=== PATIENT | female | born 1945 | race Caucasian/White ===

== ENCOUNTER 2017-11-21 05:55 | Day surgery (SDC) | payer MEDICARE ==
[2017-11-19 11:06] LABS: BASOPHILS % (AUTO) 0.9 % (0.0-5.0); EOSINOPHILS % (AUTO) 0.8 % (0.0-8.0); HEMATOCRIT 41.4 % (36-48); LYMPHOCYTES % (AUTO) 29.5 % (21.0-51.0); MEAN CORPUSCULAR HEMOGLOBIN 31.3 pg (27.0-33.0); MEAN CORPUSCULAR HGB CONC 34.1 g/dL (32.0-36.0); MEAN CORPUSCULAR VOLUME 91.9 fL (79-99); MONOCYTES % (AUTO) 8.5 % (3.0-13.0); NEUTROPHILS % (AUTO) 60.3 % (40.0-77.0); PLATELET COUNT (AUTO) 230 K/uL (130-400); RED BLOOD CELL COUNT(AUTO) 4.51 MIL/uL (4.00-5.50); RED CELL DISTRIBUTION WIDTH 13.7 % (11.0-15.5); WHITE BLOOD COUNT (AUTO) 7.5 K/uL (4.8-10.8)
[2017-11-19 11:20] VITALS: BP 116/70
[2017-11-19 11:21] LABS: CREATININE 0.8 mg/dL (0.5-1.5); POTASSIUM 4.6 mmol/L (3.5-5.1)
[2017-11-19 11:24] LABS: INR 1.21 (0.85-1.15); PARTIAL THROMBOPLASTIN TIME 32.5 SEC (26.3-35.5); PROTHROMBIN TIME 12.7 SEC (9.6-11.6)
[2017-11-21] VITALS (10 sets, daily range): BP systolic 99–123; BP diastolic 33–63
[~2017-11-21] VITALS: Ht 172.7 cm; Wt 89.4 kg
[~2017-11-21 05:55] MED LIST: AMIO200T2 PO; ASPI-1181 PO; ATOR10 PO; INSLAN SQ; INSNOV SQ; KRIL1CAP12 PO; LOSA50TA37 PO; METO25TA6 PO; MULT-1258 PO; PROP10DR5 OU; RANO500T3 PO; RIVA20TA PO; TRAM100T34 PO
[2017-11-21] MEDS ORDERED: HEPARIN SODIUM 1000UNIT/ML 10ML VIAL ONE (07:35)
[2017-11-21] MEDS ORDERED: LIDOCAINE HCL 2% 20ML ONE (07:35)
[2017-11-21] MEDS ORDERED: MIDAZOLAM HCL 1 MG/ML 2ML VIAL ONE (07:52)
[2017-11-21] MEDS ORDERED: MEPERIDINE-PF 25 MG/ML SYG ONE (07:52)
[2017-11-21] MEDS ORDERED: GLUCAGON 1MG KIT 1 MG ML IM PRN (10:00)
[2017-11-21] MEDS ORDERED: DEXTROSE 50%-WATER 50 ML DISP.SYRIN IV PRN (10:00)
[2017-11-21] MEDS ORDERED: SODIUM CHLORIDE 0.9% 1000ML 1,000 ML IV ONE (10:46)
[2017-11-21] MEDS ORDERED: RIVAROXABAN 20 MG TABLET PO SCH (13:00)
== END 2017-11-21 13:45 | disposition home or self-care (01) ==
LOC: DAH 05:55
PROVIDERS: ATTEND Internal Medicine Cardiovascular Disease
DX: I48.4 Atypical atrial flutter (principal); I48.3 Typical atrial flutter; Z79.4 Long term (current) use of insulin; I11.0 Hypertensive heart disease with heart failure; I50.9 Heart failure, unspecified; E78.5 Hyperlipidemia, unspecified; Z79.899 Other long term (current) drug therapy; Z79.84 Long term (current) use of oral hypoglycemic drugs; I48.91 Unspecified atrial fibrillation; I25.10 Atherosclerotic heart disease of native coronary artery without angina pectoris; Z95.1 Presence of aortocoronary bypass graft; Z68.30 Body mass index [BMI] 30.0-30.9, adult
CPT/HCPCS: 36415; 80048; 82948 ×2; 85025; 85610; 85730; 93005; 93613; 93621; 93653; C1730; C1732; C1894 ×2; J1644; J2175; J2250; J3490; J7030; 99152; 99153

== ENCOUNTER → 2019-11-03 | Outpatient (CLI) | payer OTHER ==
[~2019-11-03] MED LIST changes: +ALBUTEROL SULFATE 0.083% 2.5 MG/3 ML INH IH ONE; -AMIO200T2 PO; -ASPI-1181 PO; -ATOR10 PO; +CLOP75TA14 PO; -INSLAN SQ; -INSNOV SQ; +ISOS30TA6 PO; -KRIL1CAP12 PO; -LOSA50TA37 PO; -METO25TA6 PO; +METO75TA PO; -RANO500T3 PO; +ROSU5TAB12 PO
== END | disposition home or self-care (01) ==
LOC: RESP 12:41
PROVIDERS: ATTEND Internal Medicine Cardiovascular Disease
DX: J44.9 Chronic obstructive pulmonary disease, unspecified (principal)
CPT/HCPCS: 94060; 94727; 94729

== ENCOUNTER → 2020-01-18 | Outpatient (CLI) | payer OTHER ==
[~2020-01-18] MED LIST changes: -ALBUTEROL SULFATE 0.083% 2.5 MG/3 ML INH IH ONE; +IOHEXOL-350 50ML VIAL IV ONE
== END | disposition home or self-care (01) ==
LOC: RAH 07:43
PROVIDERS: ATTEND Internal Medicine Cardiovascular Disease
DX: I65.21 Occlusion and stenosis of right carotid artery (principal); I70.0 Atherosclerosis of aorta; I25.10 Atherosclerotic heart disease of native coronary artery without angina pectoris; Z95.1 Presence of aortocoronary bypass graft
CPT/HCPCS: 70496; 70498; Q9967

== ENCOUNTER 2020-03-08 07:09 | Inpatient (IN) | payer OTHER ==
--- NOTE | 2020-03-07 16:58 | NUR ---
ASPIRIN INFORMED DIANDRA KRUGER OF PT NOT TAKING ASPIRIN. ORDERS RECEIVED TO HAVE PT TAKE 4 BABY ASPIRIN ON ARRIVAL OF PROCEDURE WITH A SMALL SIP OF WATER
[~2020-03-08] VITALS: Ht 170.2 cm; Wt 79.4 kg
[2020-03-08] VITALS (18 sets, daily range): BP systolic 87–159; BP diastolic 30–81
[2020-03-08] MEDS: ASPIRIN 81MG TAB.CHEW PO SCH ×3 (07:00→09:00)
[~2020-03-08 07:09] MED LIST changes: +FURO-151 PO; +HYDR-4153 PO; -IOHEXOL-350 50ML VIAL IV ONE; +IRON PO; -MULT-1258 PO; +POTA10CA44 PO; -PROP10DR5 OU; -RIVA20TA PO; -TRAM100T34 PO; +VITAMIN D PO; +ZINC50TA64 PO
[2020-03-08] MEDS ORDERED: SODIUM CHLORIDE 0.9% 1000ML 1,000 ML IV ONE (08:02)
[2020-03-08 08:14] LABS: BASOPHILS % (AUTO) 0.4 % (0.0-5.0); EOSINOPHILS % (AUTO) 1.5 % (0.0-8.0); HEMATOCRIT 35.3 % (36-48); LYMPHOCYTES % (AUTO) 34.8 % (21.0-51.0); MEAN CORPUSCULAR HEMOGLOBIN 27.6 pg (27.0-33.0); MEAN CORPUSCULAR HGB CONC 32.3 g/dL (32.0-36.0); MEAN CORPUSCULAR VOLUME 85.5 fL (79-99); MONOCYTES % (AUTO) 11.8 % (3.0-13.0); NEUTROPHILS % (AUTO) 51.3 % (40.0-77.0); PLATELET COUNT (AUTO) 160 K/uL (130-400); RED BLOOD CELL COUNT(AUTO) 4.13 MIL/uL (4.00-5.50); RED CELL DISTRIBUTION WIDTH 17.8 % (11.0-15.5); WHITE BLOOD COUNT (AUTO) 5.3 K/uL (4.8-10.8)
[2020-03-08] MEDS ORDERED: CEFAZOLIN SODIUM 1 GM VIAL ONE ×2 (08:21→09:41)
[2020-03-08 08:34] LABS: CREATININE 0.7 mg/dL (0.5-1.5); POTASSIUM 3.9 mmol/L (3.5-5.1)
[2020-03-08 08:42] LABS: INR 0.95 (0.85-1.15); PARTIAL THROMBOPLASTIN TIME 24.4 SEC (26.3-35.5); PROTHROMBIN TIME 10.3 SEC (9.6-11.6)
[2020-03-08 08:57] LABS: APPEARANCE,URINE Clear (CLEAR); BILIRUBIN,URINE Negative (NEGATIVE); COLOR,URINE Yellow (YELLOW); GLUCOSE, URINE (UA) 250 mg/dL (NEGATIVE); KETONES,URINE Negative (NEGATIVE); LEUKOCYTE ESTERASE ,URINE Negative (NEGATIVE); NITRATE,URINE Negative (NEGATIVE); OCCULT BLOOD,URINE Negative (NEGATIVE); PH,URINE 5.5 (5.0-8.0); PROTEIN,URINE Negative (NEGATIVE)
[2020-03-08 09:30] LABS: BACTERIA,URINE Rare /HPF (None Seen); RBC,URINE 0-1 /HPF (0-1); SQUAMOUS EPITHELIAL CELL,UR Rare /HPF (0-2); WBC,URINE 0-1 /HPF (0-1)
[2020-03-08] MEDS ORDERED: NOREPINEPHRINE BITARTRATE 1 MG/1 ML ML IV ONE (09:36)
[2020-03-08] MEDS ORDERED: LIDOCAINE PF 2% 5ML ABBOJECT ONE (09:36)
[2020-03-08] MEDS ORDERED: PROPOFOL 10 MG/ML 20ML VIAL IV ONE (09:37)
[2020-03-08] MEDS ORDERED: ONDANSETRON HCL 4 MG/2 ML VIAL ONE (09:37)
[2020-03-08] MEDS ORDERED: FENTANYL CITRATE PF 50 MCG/1 ML 2ML VIAL ONE (09:37)
[2020-03-08] MEDS ORDERED: ROCURONIUM 10MG/1ML SYR 10 MG/ML ML ONE (09:37)
[2020-03-08] MEDS ORDERED: ATROPINE SULFATE 0.1 MG/ML 10 ML SYG IVP ONE (09:40)
[2020-03-08] MEDS ORDERED: HEPARIN SODIUM 1000UNIT/ML 10ML VIAL ONE (09:41)
[2020-03-08] MEDS ORDERED: LIDOCAINE HCL 2% 20ML ONE (09:41)
[2020-03-08] MEDS ORDERED: SODIUM BICARB 50MEQ 50ML VIAL ONE (09:41)
[2020-03-08] MEDS ORDERED: NITROGLYCERIN 2 MG/VIAL VIAL IV ONE (09:41)
[2020-03-08] MEDS ORDERED: IODIXANOL 320 MG/ML 100 ML VIAL ONE (09:41)
[2020-03-08] MEDS: INSULIN HUMULIN R 100 UNIT/ML 3ML SQ SCH ×3 (11:30→20:58)
[2020-03-08] MEDS ORDERED: DEXTROSE 50%-WATER 50 ML DISP.SYRIN IV PRN ×2 (11:30→17:00)
[2020-03-08] MEDS ORDERED: PHARMACY COMMUNICATION MISC SCH (11:30)
[2020-03-08] MEDS ORDERED: NEOSTIGMINE 5MG/5ML SYR IV ONE (11:32)
[2020-03-08] MEDS ORDERED: GLYCOPYRROLATE 0.2 MG/ML 5 ML VIAL ONE (11:33)
[2020-03-08] MEDS ORDERED: NOREPINEPHRINE 4MG/NS 250ML 250 ML IV PRN (12:00)
[2020-03-08] MEDS ORDERED: NITROGLYCERIN 50 MG/D5% WATER 1 BOT IV PRN (12:00)
--- NOTE | 2020-03-08 12:00 | NUR ---
ASSUME CARE OF PATIENT FROM TRAVEL ACCOMMODATIONS RATER. PT IS AWAKE AND EXTUBATED. DROWSY. AIRWAY PATENT AND LEFT NECK INCISION HAS NO HEMATOMA
--- NOTE | 2020-03-08 13:04 | NUR ---
PT IS ALERT AND ORIENTED NOW. PT HAS CHRONIC LEFT FACIAL DROOP. HAND ASSISTANT COOK ARE EQUAL AND SPEECH IS CLEAR.
--- NOTE | 2020-03-08 13:30 | NUR ---
ABP 90/32- NIBP 95/38...LEVOPHED DRIP INITIATED AT 0.1MCG/KG/MIN
--- NOTE | 2020-03-08 13:40 | NUR ---
ABP 175/60.. LEVOPHED DRIP STOPPED.
[2020-03-08] MEDS: SODIUM CHLORIDE 0.9% 1000ML 1,000 ML IV SCH ×2 (13:44→19:58)
[2020-03-08] MEDS ORDERED: ACETAMINOPHEN-CODEINE 300/30MG TAB PO PRN ×2 (14:00)
--- NOTE | 2020-03-08 14:10 | NUR ---
COMMUNICATED WITH DR SULLIVAN VIA [facility]. I INFORMED THEM OF HTN WITH LEVOPHED . ORDERS GIVEN TO MONITOR PT AND KEEP BP 100-140
--- NOTE | 2020-03-08 14:35 | NUR ---
[facility]AY[facility] PLAN PATIENT DOWN FOR CAROTID. EUGENIE WILL CONTINUE TO FOLLOW. Addendum: 03/08/20 at 1436 by TOR TREVIZO RN CM Amended: Links added.
[2020-03-08] MEDS: ACETAMINOPHEN-CODEINE 300/30MG TAB PO PRN ×2 (14:59→20:55)
--- NOTE | 2020-03-08 16:42 | NUR ---
PT C/O NUMBNESS TO FINGERS RT HAND. BP LOW 90/30...I HAVE RESUMED LEVOPHED AT 0.01MCG/KG/MIN (3ML/HR) AMD WILL OBSERVE
[2020-03-08] MEDS ORDERED: POTASSIUM CHLORIDE 20MEQ/100ML 100 ML IV PRN (17:00)
[2020-03-08] MEDS ORDERED: POTASSIUM CHLORIDE 10% ELIXIR 20 MEQ/15 ML UDCUP PO PRN (17:00)
[2020-03-08] MEDS ORDERED: GLUCAGON 1MG KIT 1 MG ML IM PRN (17:00)
[2020-03-08] MEDS ORDERED: MAGNESIUM 2GM PREMIX 50ML 50 ML IV PRN (17:00)
[2020-03-08] MEDS ORDERED: POTASSIUM CHLORIDE 20 MEQ ERTAB PO PRN (17:00)
[2020-03-08] MEDS: CEFAZOLIN SODIUM 1 GM VIAL IVP SCH (17:52)
[2020-03-08] MEDS: METOPROLOL TARTRATE 50 MG TAB PO SCH (19:42)
[2020-03-08] MEDS ORDERED: INSULIN HUMULIN R 100 UNIT/ML 3ML SQ SCH (21:00)
[2020-03-08] MEDS ORDERED: HYDR-4453 PO (21:31)
[2020-03-09] VITALS (10 sets, daily range): BP systolic 95–143; BP diastolic 31–58
[2020-03-09] MEDS: CEFAZOLIN SODIUM 1 GM VIAL IVP SCH (01:03)
[2020-03-09] MEDS: HYDROCODONE/ACETAMINOPHEN 10/325 MG TAB PO PRN ×2 (01:20→08:17)
[2020-03-09] MEDS: SODIUM CHLORIDE 0.9% 1000ML 1,000 ML IV SCH (02:34)
[2020-03-09 04:41] LABS: HEMATOCRIT 31.5 % (36-48); MEAN CORPUSCULAR HEMOGLOBIN 27.8 pg (27.0-33.0); MEAN CORPUSCULAR HGB CONC 32.1 g/dL (32.0-36.0); MEAN CORPUSCULAR VOLUME 86.8 fL (79-99); RED BLOOD CELL COUNT(AUTO) 3.63 MIL/uL (4.00-5.50); RED CELL DISTRIBUTION WIDTH 17.9 % (11.0-15.5); WHITE BLOOD COUNT (AUTO) 6.5 K/uL (4.8-10.8)
[2020-03-09 05:30] LABS: CREATININE 0.5 mg/dL (0.5-1.5); POTASSIUM 3.9 mmol/L (3.5-5.1)
[2020-03-09] MEDS: INSULIN HUMULIN R 100 UNIT/ML 3ML SQ SCH (05:30)
[2020-03-09] MEDS: METOPROLOL TARTRATE 50 MG TAB PO SCH (07:56)
--- NOTE | 2020-03-09 07:57 | NUR ---
PT OOB IN CHAIR- DR SULLIVAN MADE ROUNDS- CLEARED PT FOR DISCHARGE AFTER IV FLUID BOLUS
[2020-03-09] MEDS ORDERED: FUROSEMIDE 40 MG TABLET PO SCH (09:00)
[2020-03-09] MEDS ORDERED: ISOSORBIDE MONO 30MG TAB SR PO SCH (09:00)
[2020-03-09] MEDS ORDERED: VIT D 2000 UNIT PO SCH (09:00)
[2020-03-09] MEDS ORDERED: ASPIRIN 81MG TAB.CHEW PO SCH (09:00)
[2020-03-09] MEDS ORDERED: POTASSIUM CHLORIDE 10 MEQ/TAB.SA PO SCH (09:00)
[2020-03-09] MEDS ORDERED: CLOPIDOGREL BISULFATE 75 MG TAB PO SCH (09:00)
[2020-03-09] MEDS ORDERED: ATORVASTATIN CALCIUM 10 MG TABLET PO SCH (09:00)
[2020-03-09] MEDS ORDERED: ZINC 50 MG PO SCH (09:00)
[2020-03-09] MEDS ORDERED: HYDRALAZINE HCL 25 MG TABLET PO SCH (09:00)
[2020-03-09] MEDS ORDERED: FERROUS SULFATE 325 MG TABLET.DR PO SCH (09:00)
--- NOTE | 2020-03-09 09:39 | NUR ---
PENDING ARRIVAL OF Rica [employer]ITH [employer] DEVELOPER TO SEE PT FOR DISCHARGE.. SHE WAS NOTIFIED. I HAVE REMOVED A-LINE LEFT BRACHIAL ARTERY. NO HEMATOMA (D-STAT UTILIZED) . IV LEFT FOREARM IV LEAKING AND IT WAS REMOVED INTACT. PT STABLE
--- NOTE | 2020-03-09 11:07 | NUR ---
PRINTED AND VERBAL DISCHARGE INSTRUCTIONS GIVEN . VERBALIZES UNDERSTANDING. ALL IV'S REMOVED INTACT. PENDING HER TO PICK HER UP
--- NOTE | 2020-03-09 11:30 | NUR ---
DISCHARGED- TO CAR VIA WHEELCHAIR
--- NOTE | 2020-03-09 16:53 | NUR ---
DC PLAN PATIENT DISCHARGED HOME ALREADY GONE NO NEEDS VERBALIZED BY NURSING STAFF. Addendum: 03/09/20 at 1656 by TOR TREVIZO RN CM Amended: Links added.
== END 2020-03-09 11:30 | disposition home or self-care (01) | DRG 36 ==
LOC: DAHIP 07:09 → EDSTATUS 09:30 → PAH.CVR 12:27
PROVIDERS: ADMIT Internal Medicine Critical Care Medicine; ATTEND Internal Medicine Critical Care Medicine
PROC: B3141ZZ Fluoroscopy of Left Common Carotid Artery using Low Osmolar Contrast (ICD-10-PCS; 2020-03-08)
PROC: 037L3DZ Dilation of Left Internal Carotid Artery with Intraluminal Device, Percutaneous Approach (ICD-10-PCS; principal; 2020-03-08 09:56)
DX: I65.22 Occlusion and stenosis of left carotid artery (principal); E11.51 Type 2 diabetes mellitus with diabetic peripheral angiopathy without gangrene; E66.9 Obesity, unspecified; Z68.27 Body mass index [BMI] 27.0-27.9, adult; E78.5 Hyperlipidemia, unspecified; I10 Essential (primary) hypertension; I25.10 Atherosclerotic heart disease of native coronary artery without angina pectoris; I35.0 Nonrheumatic aortic (valve) stenosis; R29.810 Facial weakness; Z79.01 Long term (current) use of anticoagulants; Z79.02 Long term (current) use of antithrombotics/antiplatelets; Z79.899 Other long term (current) drug therapy; Z87.891 Personal history of nicotine dependence; Z95.0 Presence of cardiac pacemaker; Z95.1 Presence of aortocoronary bypass graft; Z95.2 Presence of prosthetic heart valve
CPT/HCPCS: 36415; 37215; 71045; 80048; 81001; 82948; 85025; 85027; 85347; 85610; 85730; 86850; 86900; 86901; 86922; 93005; A4606; C1725; C1894; G0378; J0461; J0690; J1644; J2001; J2405; J2704; J2710; J3010; J3490; J7030; J7040; Q9967

== ENCOUNTER 2020-11-28 05:57 | Day surgery (SDC) | payer OTHER ==
[2020-11-24 14:54] LABS: BASOPHILS % (AUTO) 0.5 % (0.0-5.0); EOSINOPHILS % (AUTO) 0.9 % (0.0-8.0); HEMATOCRIT 44.1 % (36-48); LYMPHOCYTES % (AUTO) 29.8 % (21.0-51.0); MEAN CORPUSCULAR HEMOGLOBIN 30.7 pg (27.0-33.0); MEAN CORPUSCULAR HGB CONC 32.4 g/dL (32.0-36.0); MEAN CORPUSCULAR VOLUME 94.6 fL (79-99); MONOCYTES % (AUTO) 9.6 % (3.0-13.0); NEUTROPHILS % (AUTO) 58.8 % (40.0-77.0); PLATELET COUNT (AUTO) 223 K/uL (130-400); RED BLOOD CELL COUNT(AUTO) 4.66 MIL/uL (4.00-5.50); RED CELL DISTRIBUTION WIDTH 12.4 % (11.0-15.5)
[2020-11-24 15:04] LABS: CREATININE 0.8 mg/dL (0.5-1.5); POTASSIUM 4.4 mmol/L (3.5-5.1)
[2020-11-24 15:07] LABS: INR 1.43 (0.85-1.15); PROTHROMBIN TIME 15.1 SEC (9.6-11.6)
[2020-11-24 15:09] LABS: PARTIAL THROMBOPLASTIN TIME 34.5 SEC (26.3-35.5)
[2020-11-24 15:46] LABS: APPEARANCE,URINE Clear (CLEAR); BILIRUBIN,URINE Negative (NEGATIVE); COLOR,URINE Yellow (YELLOW); GLUCOSE, URINE (UA) 500 mg/dL (NEGATIVE); KETONES,URINE Negative (NEGATIVE); LEUKOCYTE ESTERASE ,URINE Moderate (NEGATIVE); NITRATE,URINE Negative (NEGATIVE); OCCULT BLOOD,URINE Nonhemolyzed Trace (NEGATIVE); PROTEIN,URINE Negative (NEGATIVE); UROBILINOGEN,URINE 0.2 mg/dL (0.2-1.0)
[2020-11-24 16:08] LABS: BACTERIA,URINE Few /HPF (None Seen); MUCUS,URINE None Seen LPF (None Seen); SQUAMOUS EPITHELIAL CELL,UR 0-2 /HPF (0-2)
[2020-11-27 12:31] VITALS: BP 133/62
[2020-11-28] VITALS (10 sets, daily range): BP systolic 115–147; BP diastolic 40–65
[~2020-11-28] VITALS: Ht 170.2 cm; Wt 83.3 kg
[~2020-11-28 05:57] MED LIST changes: +ACETAMINOPHEN 325 MG TAB PO PRN; +DRON400T2 PO; +EMPA10TA PO; +FENO145T26 PO; -HYDR-4153 PO; +INSU100I24 SQ; +INSU100I3 SQ; -IRON PO; -ISOS30TA6 PO; +METO100T14 PO; -METO75TA PO; +MV-M1TAB20 PO; +MVIT PO; +OXYC10TA48 PO; +RIVA20TA PO; +SODIUM CHLORIDE 0.9% 500ML 500 ML IV SCH; -VITAMIN D PO; +VITAMIN E PO
[2020-11-28] MEDS ORDERED: IOHEXOL-350 50ML VIAL IV ONE (07:13)
[2020-11-28] MEDS ORDERED: BIVALIRUDIN 250 MG/VIAL IV ONE (07:13)
[2020-11-28] MEDS ORDERED: IOHEXOL 350 MG/ML 100ML INFUS..BTL IV ONE (07:13)
[2020-11-28] MEDS ORDERED: FENTANYL CITRATE PF 50 MCG/1 ML 2ML VIAL ONE (07:14)
[2020-11-28] MEDS ORDERED: MIDAZOLAM HCL 1 MG/ML 2ML VIAL ONE (07:14)
[2020-11-28] MEDS ORDERED: LIDOCAINE HCL 2% 20ML ONE (07:14)
[2020-11-28] MEDS ORDERED: SODIUM CHLORIDE 0.9% 1000ML 1,000 ML IV ONE (07:20)
[2020-11-28] MEDS ORDERED: NITROGLYCERIN 2 MG/VIAL VIAL IV ONE (07:21)
[2020-11-28] MEDS ORDERED: GLUCAGON 1MG KIT 1 MG ML IM PRN (08:30)
[2020-11-28] MEDS ORDERED: DEXTROSE 50%-WATER 50 ML DISP.SYRIN IV PRN (08:30)
[2020-11-28] MEDS ORDERED: NITROGLYCERIN 0.4 MG SL TAB SL PRN (08:30)
[2020-11-28] MEDS ORDERED: SODIUM CHLORIDE 0.9% 1000ML 1,000 ML IV SCH (08:30)
[2020-11-28] MEDS ORDERED: INSULIN HUMULIN R 100 UNIT/ML 3ML SQ SCH (11:30)
== END 2020-11-28 14:15 | disposition home or self-care (01) ==
LOC: DAH 05:57
PROVIDERS: ATTEND Internal Medicine Cardiovascular Disease
DX: I25.118 Atherosclerotic heart disease of native coronary artery with other forms of angina pectoris (principal); E11.9 Type 2 diabetes mellitus without complications; I10 Essential (primary) hypertension; E78.5 Hyperlipidemia, unspecified; Z95.1 Presence of aortocoronary bypass graft; Z88.0 Allergy status to penicillin; Z79.01 Long term (current) use of anticoagulants; Z79.4 Long term (current) use of insulin; Z79.899 Other long term (current) drug therapy
CPT/HCPCS: 36415; 71045; 80048; 81001; 82948 ×2; 85025; 85610; 85730; 87088; 93005; 93455; A4215; A4216; A4221; A4222; A4223 ×3; A4606; A4663; C1760; C1769; C1894 ×2; J1644 ×2; J2250; J3010; J3490 ×2; J7030; Q9965; Q9967 ×2; 99156; 99157; J0583

== ENCOUNTER → 2021-02-15 | Outpatient (CLI) | payer OTHER ==
[~2021-02-15] MED LIST changes: -ACETAMINOPHEN 325 MG TAB PO PRN; -DRON400T2 PO; +DRON400T7 PO; -ROSU5TAB12 PO; -SODIUM CHLORIDE 0.9% 500ML 500 ML IV SCH
== END | disposition home or self-care (01) ==
LOC: SHCH 08:23
PROVIDERS: ATTEND Internal Medicine Cardiovascular Disease
DX: I70.293 Other atherosclerosis of native arteries of extremities, bilateral legs (principal)
CPT/HCPCS: 93925

== ENCOUNTER 2021-11-04 09:36 | Emergency (ER) | payer MEDICARE, OTHER ==
[~2021-11-04] VITALS: Ht 172.7 cm; Wt 81.6 kg
[2021-11-04] MEDS ORDERED: ACET-66 PO (10:33)
[2021-11-04] MEDS ORDERED: OSEL75 PO (10:33)
[2021-11-04 11:01] VITALS: BP 142/58
== END 2021-11-04 10:50 | disposition home or self-care (01) ==
LOC: EDH 09:36
DX: J10.1 Influenza due to other identified influenza virus with other respiratory manifestations (principal); Z20.822 Contact with and (suspected) exposure to COVID-19; E11.9 Type 2 diabetes mellitus without complications; E78.00 Pure hypercholesterolemia, unspecified; I11.9 Hypertensive heart disease without heart failure; I25.10 Atherosclerotic heart disease of native coronary artery without angina pectoris; Z79.4 Long term (current) use of insulin; Z79.899 Other long term (current) drug therapy; Z95.810 Presence of automatic (implantable) cardiac defibrillator
CPT/HCPCS: 87635; 87804 ×2; 93005; 99284; C9803

== ENCOUNTER 2022-01-10 19:50 | Observation (INO) | payer MEDICARE ==
[~2022-01-10] VITALS: Ht 170.2 cm; Wt 80.3 kg
[~2022-01-10 19:50] MED LIST changes: +ACET-66 PO; +OSEL75 PO
[2022-01-10 20:48] LABS: BASOPHILS % (AUTO) 0.5 % (0.0-5.0); EOSINOPHILS % (AUTO) 0.5 % (0.0-8.0); HEMATOCRIT 33.1 % (36-48); LYMPHOCYTES % (AUTO) 19.2 % (21.0-51.0); MEAN CORPUSCULAR HEMOGLOBIN 25.3 pg (27.0-33.0); MEAN CORPUSCULAR HGB CONC 29.9 g/dL (32.0-36.0); MEAN CORPUSCULAR VOLUME 84.4 fL (79-99); MONOCYTES % (AUTO) 9.8 % (3.0-13.0); NEUTROPHILS % (AUTO) 69.6 % (40.0-77.0); PLATELET COUNT (AUTO) 225 K/uL (130-400); RED BLOOD CELL COUNT(AUTO) 3.92 MIL/uL (4.00-5.50); RED CELL DISTRIBUTION WIDTH 17.2 % (11.0-15.5); WHITE BLOOD COUNT (AUTO) 7.4 K/uL (4.8-10.8)
[2022-01-10 21:07] LABS: B-TYPE NATRIURETIC PEPTIDE 475 pg/mL (0-100)
[2022-01-10 21:25] LABS: ALBUMIN 3.3 g/dL (3.5-5.0); BILIRUBIN,TOTAL 0.4 mg/dL (0.2-1.0); CREATININE 0.7 mg/dL (0.5-1.5); POTASSIUM 4.6 mmol/L (3.5-5.1); THYROID STIMULATING HORMONE 5.1 uIU/mL (0.36-3.74); TOTAL PROTEIN, SERUM 6.9 g/dL (6.0-8.3)
[2022-01-10] MEDS ORDERED: ACETAMINOPHEN 325 MG TAB PO PRN ×2 (21:30)
[2022-01-10] MEDS ORDERED: ONDANSETRON 4MG INJ IV PRN (21:30)
[2022-01-10 22:23] VITALS: BP 181/72
[2022-01-10] MEDS ORDERED: ATOR20TA65 PO (23:12)
[2022-01-10] MEDS ORDERED: INSU100I3 SQ (23:12)
[2022-01-10] MEDS ORDERED: AMIO200T68 PO (23:12)
[2022-01-10] MEDS ORDERED: INSU100I24 SQ (23:12)
[2022-01-10] MEDS ORDERED: DOXY-336 PO (23:12)
[2022-01-10] MEDS ORDERED: LACT10SO76 PO (23:12)
[2022-01-10] MEDS ORDERED: EMPA25TA PO (23:12)
[2022-01-11] VITALS (7 sets, daily range): BP systolic 112–187; BP diastolic 25–93
[2022-01-11] MEDS: INSULIN HUMULIN R 100 UNIT/ML 3ML SQ SCH ×5 (02:51→20:13)
[2022-01-11] MEDS: OXYCODONE HCL 5 MG TAB PO PRN ×2 (04:00→21:41)
[2022-01-11 04:34] LABS: BASOPHILS % (AUTO) 0.5 % (0.0-5.0); EOSINOPHILS % (AUTO) 1.2 % (0.0-8.0); HEMATOCRIT 32.9 % (36-48); LYMPHOCYTES % (AUTO) 24.9 % (21.0-51.0); MEAN CORPUSCULAR HEMOGLOBIN 25.6 pg (27.0-33.0); MEAN CORPUSCULAR HGB CONC 30.4 g/dL (32.0-36.0); MEAN CORPUSCULAR VOLUME 84.1 fL (79-99); MONOCYTES % (AUTO) 10.4 % (3.0-13.0); NEUTROPHILS % (AUTO) 62.9 % (40.0-77.0); PLATELET COUNT (AUTO) 231 K/uL (130-400); RED BLOOD CELL COUNT(AUTO) 3.91 MIL/uL (4.00-5.50); RED CELL DISTRIBUTION WIDTH 17.2 % (11.0-15.5); WHITE BLOOD COUNT (AUTO) 7.8 K/uL (4.8-10.8)
[2022-01-11 04:54] LABS: ALBUMIN 3.2 g/dL (3.5-5.0); BILIRUBIN,TOTAL 0.5 mg/dL (0.2-1.0); CREATININE 0.6 mg/dL (0.5-1.5); POTASSIUM 4.2 mmol/L (3.5-5.1); TOTAL PROTEIN, SERUM 6.8 g/dL (6.0-8.3)
[2022-01-11 05:49] LABS: ERYTHROCYTE SEDIMENTATION RATE 25 MM/HR (0-30)
[2022-01-11] MEDS: FUROSEMIDE 40MG VIAL IV SCH ×2 (06:17→18:34)
[2022-01-11] MEDS ORDERED: INSULIN HUMULIN R 100 UNIT/ML 3ML SQ SCH (07:30)
[2022-01-11] MEDS ORDERED: RIVAROXABAN 20 MG TABLET PO SCH (09:00)
[2022-01-11] MEDS ORDERED: ATORVASTATIN 20 MG TABLET PO SCH (09:00)
[2022-01-11] MEDS: METOPROLOL TARTRATE 50 MG TAB PO SCH ×2 (09:12→20:12)
[2022-01-11] MEDS: FAMOTIDINE 20MG VIAL IV SCH ×2 (09:12→20:11)
[2022-01-11 15:58] LABS: HEMOGLOBIN A1C 9.4 % (4.0-6.0)
[2022-01-11] MEDS ORDERED: INSULIN GLARGINE 100 UNITS/ML 10 ML VIAL SQ SCH (21:00)
[2022-01-12 00:18] VITALS: BP 141/57
[2022-01-12 03:43] VITALS: BP 139/54
[2022-01-12 04:06] LABS: BASOPHILS % (AUTO) 0.5 % (0.0-5.0); EOSINOPHILS % (AUTO) 1.6 % (0.0-8.0); HEMATOCRIT 30.8 % (36-48); LYMPHOCYTES % (AUTO) 30.2 % (21.0-51.0); MEAN CORPUSCULAR HEMOGLOBIN 25.2 pg (27.0-33.0); MEAN CORPUSCULAR HGB CONC 30.2 g/dL (32.0-36.0); MEAN CORPUSCULAR VOLUME 83.5 fL (79-99); MONOCYTES % (AUTO) 13.1 % (3.0-13.0); NEUTROPHILS % (AUTO) 54.2 % (40.0-77.0); PLATELET COUNT (AUTO) 199 K/uL (130-400); RED BLOOD CELL COUNT(AUTO) 3.69 MIL/uL (4.00-5.50); RED CELL DISTRIBUTION WIDTH 17.2 % (11.0-15.5); WHITE BLOOD COUNT (AUTO) 5.6 K/uL (4.8-10.8)
[2022-01-12 04:15] LABS: CREATININE 0.8 mg/dL (0.5-1.5); MAGNESIUM 1.7 mg/dL (1.80-2.40); POTASSIUM 4.5 mmol/L (3.5-5.1)
[2022-01-12] MEDS: FUROSEMIDE 40MG VIAL IV SCH (05:34)
[2022-01-12] MEDS: INSULIN HUMULIN R 100 UNIT/ML 3ML SQ SCH (05:37)
[2022-01-12 07:30] VITALS: BP 123/39
[2022-01-12] MEDS ORDERED: LACTULOSE 20 GM/30 ML UDCUP PO SCH (09:00)
[2022-01-12] MEDS ORDERED: ENALAPRIL MALEATE 5 MG TAB PO SCH (09:00)
[2022-01-12] MEDS ORDERED: CLOPIDOGREL 75MG TAB PO SCH (09:00)
[2022-01-12] MEDS ORDERED: ATORVASTATIN 20 MG TABLET PO SCH (09:00)
[2022-01-12] MEDS ORDERED: DOXYCYCLINE HYCLATE 100 MG TABLET PO SCH (09:00)
[2022-01-12] MEDS ORDERED: AMIODARONE 200 MG TABLET PO SCH (09:00)
[2022-01-12] MEDS: FENOFIBRATE NANOCRYSTALLIZED 145 MG TAB PO SCH ×2 (10:02→13:02)
[2022-01-12] MEDS: FAMOTIDINE 20MG VIAL IV SCH (10:03)
[2022-01-12 11:35] VITALS: BP 135/64
[2022-01-12 12:42] VITALS: BP 120/70
[2022-01-12] MEDS: METOPROLOL TARTRATE 50 MG TAB PO SCH (13:01)
[2022-01-12] MEDS ORDERED: ENAL5TAB17 PO (16:07)
[2022-01-12 16:33] VITALS: BP 120/70
== END 2022-01-12 17:00 | disposition home or self-care (01) ==
LOC: EDH 19:50 → INTOOBSV 20:12 → OBSVTOIN 20:12 → EDHIP 20:12 → 4CH 22:13
PROVIDERS: ADMIT Family Medicine; ATTEND Family Medicine
DX: R07.89 Other chest pain (principal); R53.83 Other fatigue; M79.89 Other specified soft tissue disorders; I11.0 Hypertensive heart disease with heart failure; I50.33 Acute on chronic diastolic (congestive) heart failure; I25.10 Atherosclerotic heart disease of native coronary artery without angina pectoris; E11.65 Type 2 diabetes mellitus with hyperglycemia; E11.40 Type 2 diabetes mellitus with diabetic neuropathy, unspecified; E11.621 Type 2 diabetes mellitus with foot ulcer; E11.69 Type 2 diabetes mellitus with other specified complication; I27.20 Pulmonary hypertension, unspecified; I35.0 Nonrheumatic aortic (valve) stenosis; I48.91 Unspecified atrial fibrillation; I48.92 Unspecified atrial flutter; J10.1 Influenza due to other identified influenza virus with other respiratory manifestations; L97.522 Non-pressure chronic ulcer of other part of left foot with fat layer exposed; E78.5 Hyperlipidemia, unspecified; R06.00 Dyspnea, unspecified; Z79.01 Long term (current) use of anticoagulants; Z79.4 Long term (current) use of insulin; Z86.16 Personal history of COVID-19; Z87.01 Personal history of pneumonia (recurrent); Z87.891 Personal history of nicotine dependence; Z95.0 Presence of cardiac pacemaker; Z95.1 Presence of aortocoronary bypass graft; Z95.2 Presence of prosthetic heart valve; Z79.899 Other long term (current) drug therapy; Z98.890 Other specified postprocedural states
CPT/HCPCS: 36415; 71045; 71250; 73630; 80048; 80053; 82948; 83036; 83735; 83880; 84145; 84443; 84484; 85025; 85651; 93005; 93306; 93356; 96374; 96375; 96376; G0378; J1815; J1940; J2405; J3490

== ENCOUNTER 2022-04-12 06:51 | Day surgery (SDC) | payer MEDICARE ==
[2022-04-10 12:30] LABS: APPEARANCE,URINE Clear (CLEAR); BILIRUBIN,URINE Negative (NEGATIVE); COLOR,URINE Yellow (YELLOW); GLUCOSE, URINE (UA) >=1000 mg/dL (NEGATIVE); KETONES,URINE Negative (NEGATIVE); LEUKOCYTE ESTERASE ,URINE Negative (NEGATIVE); NITRATE,URINE Negative (NEGATIVE); OCCULT BLOOD,URINE Negative (NEGATIVE); PROTEIN,URINE Negative (NEGATIVE)
[2022-04-10 12:40] LABS: BACTERIA,URINE Rare /HPF (None Seen); RBC,URINE 0-1 /HPF (0-1); WBC,URINE 0-1 /HPF (0-1)
[2022-04-10 12:41] LABS: SQUAMOUS EPITHELIAL CELL,UR 0-2 /HPF (0-2)
[2022-04-10 12:47] LABS: BASOPHILS % (AUTO) 0.4 % (0.0-5.0); EOSINOPHILS % (AUTO) 0.8 % (0.0-8.0); LYMPHOCYTES % (AUTO) 33.2 % (21.0-51.0); MEAN CORPUSCULAR HEMOGLOBIN 23.7 pg (27.0-33.0); MEAN CORPUSCULAR VOLUME 79.1 fL (79-99); MONOCYTES % (AUTO) 9.5 % (3.0-13.0); NEUTROPHILS % (AUTO) 55.9 % (40.0-77.0); PLATELET COUNT (AUTO) 227 K/uL (130-400); RED BLOOD CELL COUNT(AUTO) 4.93 MIL/uL (4.00-5.50); WHITE BLOOD COUNT (AUTO) 4.9 K/uL (4.8-10.8)
[2022-04-10 12:59] LABS: CREATININE 1.1 mg/dL (0.5-1.5); POTASSIUM 4.2 mmol/L (3.5-5.1)
[2022-04-10 13:01] LABS: HEMOGLOBIN A1C 8.5 % (4.0-6.0); INR 1.05 (0.85-1.15); PROTHROMBIN TIME 11.4 SEC (9.6-11.6)
[2022-04-10 13:03] LABS: PARTIAL THROMBOPLASTIN TIME 28.2 SEC (26.3-35.5)
[2022-04-10 13:04] LABS: CHOLESTEROL 167 mg/dL (<200); HDL CHOLESTEROL 87 mg/dL (35-85); LDL DIRECT 65 mg/dL (0-99); TRIGLYCERIDES 94 mg/dL (30-200)
[2022-04-10 13:12] LABS: B-TYPE NATRIURETIC PEPTIDE 183 pg/mL (0-100)
[2022-04-11 09:46] VITALS: BP 147/65
[~2022-04-12] VITALS: Ht 170.2 cm; Wt 85.5 kg
[2022-04-12] VITALS (10 sets, daily range): BP systolic 100–123; BP diastolic 43–56
[~2022-04-12 06:51] MED LIST changes: +0.9% NACL 500ML IV.SOLN 500 ML IV SCH; -ACET-66 PO; +AMIO200T68 PO; +AMOX1TAB15 PO; +ATOR20TA65 PO; +DOXY-336 PO; -DRON400T7 PO; -EMPA10TA PO; +ERGO500093 PO; +FURO20TA6 PO; +INSU100C6 SQ; -INSU100I24 SQ; -INSU100I3 SQ; +INSU100V37 SQ; -MV-M1TAB20 PO; -MVIT PO; -OSEL75 PO; -OXYC10TA48 PO; -POTA10CA44 PO; -VITAMIN E PO; -ZINC50TA64 PO
[2022-04-12] MEDS ORDERED: 0.9%NACL 1000ML 1,000 ML IV ONE (07:47)
[2022-04-12] MEDS ORDERED: SODIUM BICARB 50MEQ 50ML VIAL 50 ML ONE (09:55)
[2022-04-12] MEDS ORDERED: HEPARIN 10,000 UNIT/10ML (1,000 UNIT/ML) VIAL ONE (09:55)
[2022-04-12] MEDS ORDERED: NITROGLYCERIN 50MG VIAL ONE (09:56)
[2022-04-12] MEDS ORDERED: LIDOCAINE HCL 400MG/20ML VIAL ONE (09:56)
[2022-04-12] MEDS ORDERED: IOHEXOL 350 MG/ML 100ML INFUS..BTL IV ONE (09:56)
[2022-04-12] MEDS ORDERED: IOHEXOL-350 50ML VIAL IV ONE (09:56)
[2022-04-12] MEDS ORDERED: MIDAZOLAM HCL 1 MG/ML 2ML VIAL ONE ×2 (10:06→10:24)
[2022-04-12] MEDS ORDERED: MEPERIDINE-PF 25 MG/ML SYG ONE ×2 (10:06→10:24)
[2022-04-12] MEDS ORDERED: IOHEXOL-350 75 ML VIAL IV ONE (11:04)
[2022-04-12] MEDS ORDERED: ASPIRIN 325MG EC TAB PO ONE (11:21)
[2022-04-12] MEDS ORDERED: 0.9%NACL 1000ML 1,000 ML IV SCH (12:00)
[2022-04-12] MEDS ORDERED: ONDANSETRON 4MG INJ IVP PRN (12:00)
== END 2022-04-12 17:30 | disposition home or self-care (01) ==
LOC: DAH 06:51
PROVIDERS: ATTEND Internal Medicine Cardiovascular Disease
DX: I25.119 Atherosclerotic heart disease of native coronary artery with unspecified angina pectoris (principal); I25.82 Chronic total occlusion of coronary artery; E11.51 Type 2 diabetes mellitus with diabetic peripheral angiopathy without gangrene; E11.65 Type 2 diabetes mellitus with hyperglycemia; I35.0 Nonrheumatic aortic (valve) stenosis; I44.0 Atrioventricular block, first degree; Z79.01 Long term (current) use of anticoagulants; Z95.5 Presence of coronary angioplasty implant and graft; Z98.890 Other specified postprocedural states; Z79.899 Other long term (current) drug therapy
CPT/HCPCS: 36215; 36415; 71045; 75710; 80048; 80061; 81001; 82948; 83036; 83880; 85025; 85610; 85730; 93005; 93459; A4215; A4216; A4221; A4222; A4223 ×3; A4606; A4663; C1760; C1769 ×2; C1874; C1887; C1894 ×2; C9604; J1644 ×2; J2175 ×2; J2250 ×2; J3490 ×3; J7030; Q9965; Q9967; 99156; 99157; C9600

== ENCOUNTER → 2022-12-17 | Outpatient (CLI) | payer MEDICARE ==
[~2022-12-17] MED LIST changes: -0.9% NACL 500ML IV.SOLN 500 ML IV SCH; +CLOP-31 PO; -CLOP75TA14 PO; -DOXY-336 PO; +DOXY-469 PO; +IOHEXOL-350 50ML VIAL IV ONE
== END | disposition home or self-care (01) ==
LOC: RAH 09:12
PROVIDERS: ATTEND Internal Medicine Cardiovascular Disease
DX: I70.0 Atherosclerosis of aorta (principal); K57.30 Diverticulosis of large intestine without perforation or abscess without bleeding; I73.9 Peripheral vascular disease, unspecified; M47.815 Spondylosis without myelopathy or radiculopathy, thoracolumbar region; K44.9 Diaphragmatic hernia without obstruction or gangrene; Z90.49 Acquired absence of other specified parts of digestive tract
CPT/HCPCS: 75635; Q9967

== ENCOUNTER → 2023-04-30 | Outpatient (CLI) | payer MEDICARE ==
[~2023-04-30] MED LIST changes: +ALBUTEROL 0.083% 2.5 MG/3 ML INH IH ONE; -IOHEXOL-350 50ML VIAL IV ONE
== END | disposition home or self-care (01) ==
LOC: RESP 09:04
PROVIDERS: ATTEND Internal Medicine Cardiovascular Disease
DX: I48.0 Paroxysmal atrial fibrillation (principal); R06.02 Shortness of breath
CPT/HCPCS: 94060; 94729

== ENCOUNTER 2023-05-05 07:15 | Day surgery (SDC) | payer MEDICARE ==
[2023-05-02 12:40] LABS: BASOPHILS % (AUTO) 0.3 % (0.0-5.0); EOSINOPHILS % (AUTO) 0.7 % (0.0-8.0); LYMPHOCYTES % (AUTO) 25.2 % (21.0-51.0); MEAN CORPUSCULAR HEMOGLOBIN 24.5 pg (27.0-33.0); MEAN CORPUSCULAR HGB CONC 30.3 g/dL (32.0-36.0); MEAN CORPUSCULAR VOLUME 80.8 fL (79-99); MONOCYTES % (AUTO) 11.9 % (3.0-13.0); NEUTROPHILS % (AUTO) 61.6 % (40.0-77.0); PLATELET COUNT (AUTO) 245 K/uL (130-400); RED BLOOD CELL COUNT(AUTO) 3.96 MIL/uL (4.00-5.50); RED CELL DISTRIBUTION WIDTH 18.9 % (11.0-15.5); WHITE BLOOD COUNT (AUTO) 6.2 K/uL (4.8-10.8)
[2023-05-02 12:53] VITALS: BP 150/69; PULSE 62; RESP 18
[2023-05-02 13:01] LABS: INR 1.23 (0.85-1.15); PROTHROMBIN TIME 14.1 SEC (9.6-11.6)
[2023-05-02 13:03] LABS: PARTIAL THROMBOPLASTIN TIME 32.7 SEC (26.3-35.5)
[2023-05-02 13:17] LABS: CREATININE 0.8 mg/dL (0.5-1.5); POTASSIUM 4.9 mmol/L (3.5-5.1)
[~2023-05-05] VITALS: Ht 170.2 cm; Wt 71.7 kg
[2023-05-05] VITALS (11 sets, daily range): BP systolic 129–171; BP diastolic 35–64; PULSE 60–63; RESP 11–20
[~2023-05-05 07:15] MED LIST changes: +0.9%NACL 1000ML 1,000 ML IV SCH; -ALBUTEROL 0.083% 2.5 MG/3 ML INH IH ONE; -AMOX1TAB15 PO; +CEFAZOLIN SODIUM 1 GM VIAL IVPB PRN; -DOXY-469 PO; -ERGO500093 PO; -FENO145T26 PO; -FURO-151 PO; +FURO-152 PO; -FURO20TA6 PO; +HYDR4TAB56 PO; +INSLAN SQ; -INSU100V37 SQ
[2023-05-05] MEDS ORDERED: BUPIVACAINE/PF 0.25% 10ML VIAL IJ ONE (09:42)
[2023-05-05] MEDS ORDERED: LIDOCAINE HCL 1% MDV 50ML VIAL ONE (09:43)
[2023-05-05] MEDS ORDERED: MIDAZOLAM HCL 1 MG/ML 2ML VIAL ONE ×2 (09:43→10:04)
[2023-05-05] MEDS ORDERED: CEFAZOLIN SODIUM 1 GM VIAL ONE (09:43)
[2023-05-05] MEDS ORDERED: MEPERIDINE-PF 25 MG/ML SYG ONE ×2 (09:44→10:04)
[2023-05-05] MEDS ORDERED: BACITRACIN 1 EACH PACKET TP ONE (10:52)
[2023-05-05] MEDS ORDERED: ACETAMINOPHEN WITH CODEINE 1 TAB TAB PO PRN (11:00)
[2023-05-05] MEDS ORDERED: ACETAMINOPHEN 500 MG TABLET PO PRN (11:00)
[2023-05-05] MEDS ORDERED: TRAM50TA4 PO (11:06)
== END 2023-05-05 14:20 | disposition home or self-care (01) ==
LOC: DAH 07:15
PROVIDERS: ATTEND Internal Medicine Cardiovascular Disease
DX: T82.191A Other mechanical complication of cardiac pulse generator (battery), initial encounter (principal); I44.2 Atrioventricular block, complete; I08.1 Rheumatic disorders of both mitral and tricuspid valves; I48.0 Paroxysmal atrial fibrillation; I11.0 Hypertensive heart disease with heart failure; I50.32 Chronic diastolic (congestive) heart failure; E11.9 Type 2 diabetes mellitus without complications; E78.5 Hyperlipidemia, unspecified; Z79.01 Long term (current) use of anticoagulants; Z79.899 Other long term (current) drug therapy; Z79.4 Long term (current) use of insulin; Z98.890 Other specified postprocedural states; Z95.5 Presence of coronary angioplasty implant and graft; Z82.49 Family history of ischemic heart disease and other diseases of the circulatory system; Z83.3 Family history of diabetes mellitus; Y83.8 Other surgical procedures as the cause of abnormal reaction of the patient, or of later complication, without mention of misadventure at the time of the procedure; Y92.89 Other specified places as the place of occurrence of the external cause
CPT/HCPCS: 80048; 85025; 85610; 85730; 36415; 93005; 33222; 82948 ×2; J0690 ×2; J7030; J2250 ×2; J3490 ×2; J2175 ×2; A4215; A6251; A4222; A4221; A4663; A4216; A6258; A4606; A4223 ×3; 99156; 99157

== ENCOUNTER 2023-06-18 12:13 | Emergency (ER) | payer MEDICARE ==
[~2023-06-18] VITALS: Ht 170.2 cm; Wt 59.0 kg
[~2023-06-18 12:13] MED LIST changes: -0.9%NACL 1000ML 1,000 ML IV SCH; -CEFAZOLIN SODIUM 1 GM VIAL IVPB PRN
[2023-06-18 13:55] LABS: BASOPHILS # (AUTO) 0.02 K/uL (0.00-0.20); BASOPHILS % (AUTO) 0.3 % (0.0-5.0); EOSINOPHILS # (AUTO) 0.03 K/uL (0.00-0.70); EOSINOPHILS % (AUTO) 0.4 % (0.0-8.0); HEMATOCRIT 35.7 % (36-48); IMMATURE GRANULOCYTE ABSOLUTE 0.03 K/uL (0-1); LYMPHOCYTES # (AUTO) 1.2 K/uL (1.0-4.8); LYMPHOCYTES % (AUTO) 16.4 % (21.0-51.0); MEAN CORPUSCULAR HEMOGLOBIN 23.6 pg (27.0-33.0); MEAN CORPUSCULAR HGB CONC 31.1 g/dL (32.0-36.0); MONOCYTES # (AUTO) 0.6 K/uL (0.1-1.0); MONOCYTES % (AUTO) 7.3 % (3.0-13.0); NEUTROPHILS # (AUTO) 5.6 K/uL (1.8-7.7); NEUTROPHILS % (AUTO) 75.2 % (40.0-77.0); PLATELET COUNT (AUTO) 329 K/uL (130-400); WHITE BLOOD COUNT (AUTO) 7.5 K/uL (4.8-10.8)
[2023-06-18 14:03] LABS: CREATININE 0.9 mg/dL (0.5-1.5); POTASSIUM 4.2 mmol/L (3.5-5.1)
[2023-06-18 14:07] LABS: BILIRUBIN,TOTAL 0.5 mg/dL (0.2-1.0); TOTAL PROTEIN, SERUM 7.7 g/dL (6.0-8.3)
[2023-06-18] MEDS ORDERED: AMOX/CLAV 500/125MG TAB PO ONE (17:30)
[2023-06-18] MEDS ORDERED: ACETAMINOPHEN WITH CODEINE 1 TAB TAB PO ONE (17:30)
[2023-06-18] MEDS ORDERED: AMOX-426 PO (18:14)
[2023-06-18 18:25] VITALS: BP 130/52; PULSE 59; RESP 16; O2SAT 100
== END 2023-06-18 18:26 | disposition home or self-care (01) ==
LOC: EDH 12:13
DX: E11.621 Type 2 diabetes mellitus with foot ulcer (principal); E11.51 Type 2 diabetes mellitus with diabetic peripheral angiopathy without gangrene; G89.29 Other chronic pain; M79.662 Pain in left lower leg; I10 Essential (primary) hypertension; I25.10 Atherosclerotic heart disease of native coronary artery without angina pectoris; Z79.01 Long term (current) use of anticoagulants; Z79.02 Long term (current) use of antithrombotics/antiplatelets; Z79.4 Long term (current) use of insulin; Z79.899 Other long term (current) drug therapy; Z95.1 Presence of aortocoronary bypass graft
CPT/HCPCS: 36415; 73620; 80053; 83605; 85025; 87040

== ENCOUNTER → 2023-06-26 | Outpatient (CLI) | payer MEDICARE ==
[~2023-06-26] MED LIST changes: +AMOX-426 PO
== END | disposition home or self-care (01) ==
LOC: SHCH 14:59
PROVIDERS: ATTEND Internal Medicine Cardiovascular Disease
DX: I87.2 Venous insufficiency (chronic) (peripheral) (principal); I73.9 Peripheral vascular disease, unspecified; R60.0 Localized edema
CPT/HCPCS: 93970

== ENCOUNTER 2024-07-20 21:42 | Emergency (ER) | payer MEDICARE ==
[~2024-07-20] VITALS: Ht 170.2 cm; Wt 56.2 kg
[2024-07-20] MEDS: hydroMORPHone 1 MG INJ IVP ONE ×2 (22:13→23:25)
[2024-07-20 23:34] VITALS: TEMP 98.3
[2024-07-21 00:11] VITALS: BP 109/35; PULSE 60; RESP 17; O2SAT 96
== END 2024-07-21 00:33 | disposition home or self-care (01) ==
LOC: EDH 21:42
DX: G89.29 Other chronic pain (principal); M79.662 Pain in left lower leg; E11.9 Type 2 diabetes mellitus without complications; E78.00 Pure hypercholesterolemia, unspecified; I10 Essential (primary) hypertension; Z79.01 Long term (current) use of anticoagulants; Z79.02 Long term (current) use of antithrombotics/antiplatelets; Z79.4 Long term (current) use of insulin; Z79.899 Other long term (current) drug therapy; Z95.810 Presence of automatic (implantable) cardiac defibrillator
CPT/HCPCS: 99284; 96374; 96376; J1170 ×2